=== PATIENT | female | born 1955 | race Caucasian/White ===

== ENCOUNTER 2018-06-15 11:52 | Inpatient (IN) | payer MEDICARE, MEDICAID ==
[~2018-06-15] VITALS: Ht 152.4 cm; Wt 74.0 kg
[~2018-06-15 11:52] MED LIST: ADV50250 IH; ALBU18HF2 IH; ALBU18HF2 INH; ATOR40TA3 PO; BUDE3CAP8 PO; CYAN-19 PO; CYCL-1 PO; DICY20TA33 PO; DIVA-81 PO; ESOM40CA PO; GABA300C PO; HYDR-565 PO; LAMOTRIGINE 25 MG; LISI40TA4 PO; LORA1TAB PO; LURA80TA3 PO; MAGN400C PO; MONT10TA21 PO; PROM25TA14 PO; ZALE5CAP2 PO
[2018-06-15] MEDS ORDERED: ondansetron/PF 4mg/2ml inj IV ONE (12:50)
[2018-06-15] MEDS ORDERED: morphine 4 MG/ML inj SYRINge IV PRN (12:50)
[2018-06-15] MEDS ORDERED: normal saline 1000ML IV soln IV ONE (12:50)
[2018-06-15 13:01] LABS: BASOPHILS # (AUTO) 0.1 X10'3 (0-0.2); BASOPHILS % (AUTO) 0.3 % (0-1); EOSINOPHILS # (AUTO) 0.4 X10'3 (0-0.9); EOSINOPHILS % (AUTO) 2.3 % (0-6); LYMPHOCYTES % (AUTO) 11.4 % (21-51); MEAN CORPUSCULAR HEMOGLOBIN 28.5 PG (27.0-31.0); MEAN CORPUSCULAR HGB CONC 33.2 % (33.0-36.5); MEAN CORPUSCULAR VOLUME 85.9 FL (78-98); MEAN PLATELET VOLUME 6.8 FL (7.4-10.4); MONOCYTES # (AUTO) 1.3 X10'3 (0-0.9); MONOCYTES % (AUTO) 7.6 % (2-12); NEUTROPHILS # (AUTO) 13.4 X10'3 (1.8-7.7); NEUTROPHILS % (AUTO) 78.4 % (42-75); PLATELET COUNT 470 X10'3 (140-440); RED BLOOD COUNT 4.54 X10'6 (4.20-5.60); RED CELL DISTRIBUTION WIDTH 14.8 % (11.5-14.5); WHITE BLOOD COUNT 17.1 X10'3 (4.5-11.0)
[2018-06-15 13:10] LABS: CLARITY,URINE CLEAR (Clear); COLOR,URINE YELLOW (Yellow); GLUCOSE, URINE NEGATIVE (Neg); KETONES,URINE NEGATIVE (Neg); LEUKOCYTE ESTERASE ,URINE NEGATIVE (Neg); NITRITES, URINE NEGATIVE (Neg); OCCULT BLOOD,URINE SMALL (Neg); PH,URINE 5.5 (4.8-8.0); PROTEIN,URINE 30 mg/dl (Neg); UROBILINOGEN,URINE 0.2 E.U/dL (0.2-1.0)
[2018-06-15 13:11] LABS: URINE HCG NEGATIVE (NEG)
[2018-06-15 13:12] LABS: UA COLLECTION TYPE VOIDED
[2018-06-15 13:12] LABS: ALANINE AMINOTRANSFERASE 22 U/L (12-78); ALBUMIN 3.8 G/DL (3.4-5.0); ALBUMIN/GLOBULIN RATIO 0.8 (1.1-1.5); ALKALINE PHOSPHATASE 107 IU/L (46-116); ANION GAP 9 (8-16); ASPARTATE AMINO TRANSFERASE 17 U/L (10-37); BILIRUBIN,TOTAL 0.3 MG/DL (0.1-1.0); BLOOD UREA NITROGEN 28 MG/DL (7-18); BUN/CREATININE RATIO 17.6 (6.6-38.0); CALCIUM 9.8 MG/DL (8.5-10.1); CHLORIDE 102 MMOL/L (99-107); CREATININE 1.59 MG/DL (0.40-0.90); GLUCOSE 140 MG/DL (70-104); LIPASE 100 U/L (73-393); POTASSIUM 3.7 MMOL/L (3.5-5.1); SODIUM 137 MMOL/L (135-145); TOTAL CARBON DIOXIDE 26.4 MMOL/L (24-32); TOTAL PROTEIN 8.7 G/DL (6.4-8.2); eGFR 33 ML/MIN
[2018-06-15 13:29] LABS: MUCUS STRANDS MODERATE /LPF (Neg); SQUAMOUS EPITHELIAL CELL,UR FEW /LPF (FEW)
[2018-06-15 13:30] LABS: BACTERIA,URINE FEW /HPF (Neg); WBC,URINE 0-4 /HPF (0-4)
[2018-06-15] MEDS ORDERED: fentaNYL/PF 50MCG/1 ML 2ML syringe IV ONE (14:00)
[2018-06-15] MEDS ORDERED: CefTRIAXone 2gm/D5W 50ml 50 ML IV ONE (15:00)
[2018-06-15] MEDS ORDERED: ALB0.5UD IH (15:29)
[2018-06-15] MEDS ORDERED: GABA-530 PO (15:29)
[2018-06-15] MEDS ORDERED: FOL0.4T PO (15:29)
[2018-06-15] MEDS ORDERED: FLUC100T PO (15:29)
[2018-06-15] MEDS ORDERED: tamsulosin 0.4mg capsule PO ONE (16:41)
[2018-06-15] MEDS ORDERED: HYDROcodone/acetaminophen 5mg/325mg tablet PO PRN (16:55)
[2018-06-15] MEDS ORDERED: bisacodyl 10mg suppository rectal RC PRN (16:55)
[2018-06-15] MEDS ORDERED: potassium Cl 20 mEq SR tablet PO PRN (16:55)
[2018-06-15] MEDS ORDERED: magnesium 4gm in 100ml NS 100 ML IV PRN (16:55)
[2018-06-15] MEDS ORDERED: magnesium Cl slow-release 64mg tablet PO PRN (16:55)
[2018-06-15] MEDS ORDERED: diphenhydrAMINE 25mg capsule PO PRN (16:55)
[2018-06-15] MEDS ORDERED: magnesium 1gm/100ml D5W IVPB 100 ML IV PRN (16:55)
[2018-06-15] MEDS ORDERED: HYDROmorphone 1 mg/ml syringe IV PRN (16:55)
[2018-06-15] MEDS ORDERED: acetaminophen 325mg tablet PO PRN ×2 (16:55)
[2018-06-15] MEDS ORDERED: potassium Cl 40MEQ/NS 500ml 500 ML IV PRN ×2 (16:55)
[2018-06-15] MEDS: K and/or MAG REPLACEMENT MC SCH (16:55)
[2018-06-15] MEDS ORDERED: hydrALAZINE 20mg/ml inj. IV PRN (17:10)
[2018-06-15] MEDS ORDERED: hydrALAZINE 20mg/ml inj. IV ONE (17:10)
[2018-06-15] MEDS: normal saline 1000ml 1,000 ML IV SCH ×2 (17:12→19:16)
[2018-06-15] MEDS ORDERED: HYDR-3686 PO (17:35)
[2018-06-15 18:10] VITALS: BP 194/90
[2018-06-15] MEDS ORDERED: cyclobenzaprine 10mg tablet PO PRN (18:10)
[2018-06-15] MEDS ORDERED: non-formulary drug (Albuterol Sulfate (Ventolin Hfa) 2 PUFFS) INH SCH (18:10)
[2018-06-15] MEDS: HYDROcodone/acetaminophen 10/325mg tab PO PRN (19:05)
[2018-06-15] MEDS: ondansetron/PF 4mg/2ml inj IV PRN (19:13)
[2018-06-15] MEDS: albuterol 2.5 MG/3 ML nebule NEB SCH ×2 (20:14→23:00)
[2018-06-15] MEDS: budesonide 0.5mg/2ml UD nebule IH SCH (20:17)
[2018-06-15] MEDS: dicyclomine 10 MG capsule PO SCH (20:27)
[2018-06-15] MEDS: atorvastatin 20mg tablet PO SCH (20:27)
[2018-06-15] MEDS: pantoprazole 40mg Tablet.DR PO SCH (20:27)
[2018-06-15] MEDS: heparin, porcine 5000 units/ml vial SQ SCH (20:31)
[2018-06-15] MEDS ORDERED: dextrose 50%-water 50ml dispensing syringe IV PRN ×2 (20:55)
[2018-06-15] MEDS ORDERED: LORazepam 2 mg/ml vial IV ONE (20:55)
[2018-06-15] MEDS ORDERED: dextrose ORAL solution 15 GM/59 ML bottle PO PRN ×2 (20:55)
[2018-06-15] MEDS ORDERED: glucagon, human recombinant 1mg kit SUBCUT PRN (20:55)
[2018-06-15] MEDS ORDERED: temazepam 15mg capsule PO PRN (21:00)
[2018-06-15 22:13] VITALS: BP 158/71
[2018-06-16] MEDS: HYDROcodone/acetaminophen 10/325mg tab PO PRN ×4 (00:12→20:37)
[2018-06-16] MEDS: albuterol 2.5 MG/3 ML nebule NEB SCH ×6 (02:55→23:08)
[2018-06-16] MEDS: normal saline 1000ml 1,000 ML IV SCH (05:08)
[2018-06-16 06:00] VITALS: BP 102/61
[2018-06-16 07:20] LABS: BASOPHILS # (AUTO) 0.1 X10'3 (0-0.2); BASOPHILS % (AUTO) 0.6 % (0-1); EOSINOPHILS # (AUTO) 0.2 X10'3 (0-0.9); EOSINOPHILS % (AUTO) 2.4 % (0-6); HEMATOCRIT 32.3 % (35.0-45.0); HEMOGLOBIN 10.7 g/dl (12.0-16.0); LYMPHOCYTES # (AUTO) 1.9 X10'3 (1.1-4.8); LYMPHOCYTES % (AUTO) 21.2 % (21-51); MEAN CORPUSCULAR HEMOGLOBIN 28.4 PG (27.0-31.0); MEAN CORPUSCULAR HGB CONC 33.1 % (33.0-36.5); MEAN CORPUSCULAR VOLUME 85.7 FL (78-98); MEAN PLATELET VOLUME 6.4 FL (7.4-10.4); MONOCYTES # (AUTO) 0.8 X10'3 (0-0.9); MONOCYTES % (AUTO) 9.1 % (2-12); NEUTROPHILS # (AUTO) 6.1 X10'3 (1.8-7.7); NEUTROPHILS % (AUTO) 66.7 % (42-75); PLATELET COUNT 358 X10'3 (140-440); RED BLOOD COUNT 3.77 X10'6 (4.20-5.60); RED CELL DISTRIBUTION WIDTH 14.8 % (11.5-14.5); WHITE BLOOD COUNT 9.2 X10'3 (4.5-11.0)
[2018-06-16 07:34] LABS: ALANINE AMINOTRANSFERASE 40 U/L (12-78); ALBUMIN 2.6 G/DL (3.4-5.0); ALBUMIN/GLOBULIN RATIO 0.7 (1.1-1.5); ALKALINE PHOSPHATASE 81 IU/L (46-116); ANION GAP 4 (8-16); ASPARTATE AMINO TRANSFERASE 24 U/L (10-37); BILIRUBIN,TOTAL 0.4 MG/DL (0.1-1.0); BLOOD UREA NITROGEN 21 MG/DL (7-18); BUN/CREATININE RATIO 11.9 (6.6-38.0); CALCIUM 8.3 MG/DL (8.5-10.1); CHLORIDE 106 MMOL/L (99-107); CREATININE 1.77 MG/DL (0.40-0.90); GLUCOSE 108 MG/DL (70-104); MAGNESIUM 1.9 MG/DL (1.5-2.4); PHOSPHORUS 3.7 MG/DL (2.3-4.5); POTASSIUM 3.8 MMOL/L (3.5-5.1); SODIUM 137 MMOL/L (135-145); TOTAL CARBON DIOXIDE 27.5 MMOL/L (24-32); TOTAL PROTEIN 6.1 G/DL (6.4-8.2); eGFR 29 ML/MIN
[2018-06-16] MEDS: gabapentin 100mg capsule PO SCH (07:58)
[2018-06-16] MEDS: pantoprazole 40mg Tablet.DR PO SCH ×2 (07:58→20:37)
[2018-06-16] MEDS: lisinopril 20mg tablet PO SCH (07:59)
[2018-06-16] MEDS: heparin, porcine 5000 units/ml vial SQ SCH ×2 (07:59→20:40)
[2018-06-16] MEDS: CefTRIAXone/D5W-Rocephin 1gm 50 ML IV SCH (07:59)
[2018-06-16] MEDS: montelukast 10mg tablet PO SCH (07:59)
[2018-06-16] MEDS: dicyclomine 10 MG capsule PO SCH ×4 (07:59→20:38)
[2018-06-16] MEDS: K and/or MAG REPLACEMENT MC SCH (08:00)
[2018-06-16] MEDS ORDERED: non-formulary drug (Lisinopril* 1 TABLET) PO SCH (08:00)
[2018-06-16] MEDS: budesonide 3mg SR capsule PO SCH (08:00)
[2018-06-16] MEDS: budesonide 0.5mg/2ml UD nebule IH SCH ×2 (08:59→18:55)
[2018-06-16 10:00] VITALS: BP 125/50
[2018-06-16] MEDS: ondansetron/PF 4mg/2ml inj IV PRN (16:38)
[2018-06-16 18:00] VITALS: BP 110/68
[2018-06-16] MEDS: tamsulosin 0.4mg capsule PO SCH (20:37)
[2018-06-16] MEDS: atorvastatin 20mg tablet PO SCH (20:38)
[2018-06-16 22:00] VITALS: BP 123/62
[2018-06-17] MEDS: normal saline 1000ml 1,000 ML IV SCH ×3 (01:11→21:48)
[2018-06-17] MEDS: HYDROcodone/acetaminophen 10/325mg tab PO PRN ×4 (01:12→17:50)
[2018-06-17] MEDS: albuterol 2.5 MG/3 ML nebule NEB SCH ×3 (03:56→11:58)
[2018-06-17 06:00] VITALS: BP 110/59
[2018-06-17 07:39] LABS: BASOPHILS # (AUTO) 0.1 X10'3 (0-0.2); BASOPHILS % (AUTO) 0.7 % (0-1); EOSINOPHILS # (AUTO) 0.3 X10'3 (0-0.9); EOSINOPHILS % (AUTO) 2.8 % (0-6); HEMATOCRIT 29.5 % (35.0-45.0); LYMPHOCYTES # (AUTO) 1.8 X10'3 (1.1-4.8); LYMPHOCYTES % (AUTO) 19.6 % (21-51); MEAN CORPUSCULAR HEMOGLOBIN 28.8 PG (27.0-31.0); MEAN CORPUSCULAR HGB CONC 33.9 % (33.0-36.5); MEAN PLATELET VOLUME 7.1 FL (7.4-10.4); MONOCYTES # (AUTO) 0.8 X10'3 (0-0.9); MONOCYTES % (AUTO) 9.2 % (2-12); NEUTROPHILS # (AUTO) 6.1 X10'3 (1.8-7.7); NEUTROPHILS % (AUTO) 67.7 % (42-75); PLATELET COUNT 336 X10'3 (140-440); RED BLOOD COUNT 3.47 X10'6 (4.20-5.60); RED CELL DISTRIBUTION WIDTH 15.1 % (11.5-14.5); WHITE BLOOD COUNT 9.1 X10'3 (4.5-11.0)
[2018-06-17] MEDS: budesonide 0.5mg/2ml UD nebule IH SCH (07:52)
[2018-06-17] MEDS: K and/or MAG REPLACEMENT MC SCH (08:00)
[2018-06-17] MEDS: budesonide 3mg SR capsule PO SCH (08:00)
[2018-06-17 08:07] LABS: ALANINE AMINOTRANSFERASE 25 U/L (12-78); ALBUMIN 2.5 G/DL (3.4-5.0); ALBUMIN/GLOBULIN RATIO 0.7 (1.1-1.5); ALKALINE PHOSPHATASE 83 IU/L (46-116); ANION GAP 7 (8-16); ASPARTATE AMINO TRANSFERASE 14 U/L (10-37); BILIRUBIN,TOTAL 0.3 MG/DL (0.1-1.0); BLOOD UREA NITROGEN 15 MG/DL (7-18); BUN/CREATININE RATIO 8.6 (6.6-38.0); CALCIUM 8.3 MG/DL (8.5-10.1); CHLORIDE 108 MMOL/L (99-107); CREATININE 1.75 MG/DL (0.40-0.90); GLUCOSE 109 MG/DL (70-104); MAGNESIUM 1.8 MG/DL (1.5-2.4); PHOSPHORUS 4.1 MG/DL (2.3-4.5); POTASSIUM 3.4 MMOL/L (3.5-5.1); SODIUM 139 MMOL/L (135-145); TOTAL CARBON DIOXIDE 23.6 MMOL/L (24-32); eGFR 29 ML/MIN
[2018-06-17 10:00] VITALS: BP 127/68
[2018-06-17] MEDS: gabapentin 100mg capsule PO SCH (10:43)
[2018-06-17] MEDS: montelukast 10mg tablet PO SCH (10:43)
[2018-06-17] MEDS: lisinopril 20mg tablet PO SCH (10:43)
[2018-06-17] MEDS: pantoprazole 40mg Tablet.DR PO SCH ×2 (10:43→19:35)
[2018-06-17] MEDS: tamsulosin 0.4mg capsule PO SCH ×2 (10:43→19:35)
[2018-06-17] MEDS: dicyclomine 10 MG capsule PO SCH ×4 (10:43→21:48)
[2018-06-17] MEDS: CefTRIAXone/D5W-Rocephin 1gm 50 ML IV SCH (10:44)
[2018-06-17] MEDS: ondansetron/PF 4mg/2ml inj IV PRN (10:44)
[2018-06-17] MEDS: heparin, porcine 5000 units/ml vial SQ SCH ×2 (10:45→19:40)
[2018-06-17] MEDS: nystatin 15 GM powder TP SCH ×2 (14:00→21:48)
[2018-06-17 18:00] VITALS: BP 125/57
[2018-06-17] MEDS: lurasidone 20mg tablet PO SCH (19:35)
[2018-06-17] MEDS: atorvastatin 20mg tablet PO SCH (21:48)
[2018-06-17 22:00] VITALS: BP 103/55
[2018-06-17] MEDS: potassium Cl 20 mEq SR tablet PO PRN (23:25)
[2018-06-18] MEDS: potassium Cl 20 mEq SR tablet PO PRN (04:12)
[2018-06-18 06:00] VITALS: BP 144/73
[2018-06-18] MEDS: CefTRIAXone/D5W-Rocephin 1gm 50 ML IV SCH (07:49)
[2018-06-18] MEDS: heparin, porcine 5000 units/ml vial SQ SCH ×2 (07:52→20:20)
[2018-06-18] MEDS: dicyclomine 10 MG capsule PO SCH ×4 (07:56→20:18)
[2018-06-18] MEDS: tamsulosin 0.4mg capsule PO SCH ×2 (07:57→20:19)
[2018-06-18] MEDS: montelukast 10mg tablet PO SCH (07:57)
[2018-06-18] MEDS: pantoprazole 40mg Tablet.DR PO SCH ×2 (07:58→17:11)
[2018-06-18] MEDS: lisinopril 20mg tablet PO SCH (07:58)
[2018-06-18] MEDS: gabapentin 100mg capsule PO SCH (07:58)
[2018-06-18] MEDS ORDERED: lurasidone 20mg tablet PO SCH (08:00)
[2018-06-18] MEDS: nystatin 15 GM powder TP SCH ×3 (08:00→20:25)
[2018-06-18] MEDS: K and/or MAG REPLACEMENT MC SCH (08:00)
[2018-06-18] MEDS: budesonide 3mg SR capsule PO SCH (08:00)
[2018-06-18] MEDS: budesonide 0.5mg/2ml UD nebule IH SCH ×2 (09:00→19:46)
[2018-06-18 09:03] LABS: BASOPHILS # (AUTO) 0.1 X10'3 (0-0.2); BASOPHILS % (AUTO) 0.7 % (0-1); EOSINOPHILS # (AUTO) 0.3 X10'3 (0-0.9); EOSINOPHILS % (AUTO) 4.3 % (0-6); HEMATOCRIT 30.8 % (35.0-45.0); HEMOGLOBIN 10.2 g/dl (12.0-16.0); LYMPHOCYTES # (AUTO) 1.7 X10'3 (1.1-4.8); LYMPHOCYTES % (AUTO) 22.9 % (21-51); MEAN CORPUSCULAR HEMOGLOBIN 28.8 PG (27.0-31.0); MEAN CORPUSCULAR HGB CONC 33.1 % (33.0-36.5); MEAN CORPUSCULAR VOLUME 86.9 FL (78-98); MEAN PLATELET VOLUME 7.2 FL (7.4-10.4); MONOCYTES # (AUTO) 0.6 X10'3 (0-0.9); MONOCYTES % (AUTO) 8.5 % (2-12); NEUTROPHILS # (AUTO) 4.8 X10'3 (1.8-7.7); NEUTROPHILS % (AUTO) 63.6 % (42-75); PLATELET COUNT 326 X10'3 (140-440); RED BLOOD COUNT 3.54 X10'6 (4.20-5.60); RED CELL DISTRIBUTION WIDTH 14.6 % (11.5-14.5); WHITE BLOOD COUNT 7.6 X10'3 (4.5-11.0)
[2018-06-18] MEDS: normal saline 1000ml 1,000 ML IV SCH ×2 (09:11→14:51)
[2018-06-18 09:22] LABS: ALANINE AMINOTRANSFERASE 28 U/L (12-78); ALBUMIN 2.4 G/DL (3.4-5.0); ALBUMIN/GLOBULIN RATIO 0.6 (1.1-1.5); ALKALINE PHOSPHATASE 82 IU/L (46-116); ANION GAP 8 (8-16); ASPARTATE AMINO TRANSFERASE 17 U/L (10-37); BILIRUBIN,TOTAL 0.3 MG/DL (0.1-1.0); BLOOD UREA NITROGEN 11 MG/DL (7-18); BUN/CREATININE RATIO 8.9 (6.6-38.0); CALCIUM 8.7 MG/DL (8.5-10.1); CHLORIDE 109 MMOL/L (99-107); CREATININE 1.23 MG/DL (0.40-0.90); GLUCOSE 88 MG/DL (70-104); MAGNESIUM 1.7 MG/DL (1.5-2.4); SODIUM 140 MMOL/L (135-145); TOTAL CARBON DIOXIDE 23.5 MMOL/L (24-32); TOTAL PROTEIN 6.1 G/DL (6.4-8.2); eGFR 44 ML/MIN
[2018-06-18 09:26] LABS: HEMOGLOBIN A1C 6.4 % (4.5-6.2)
[2018-06-18 10:00] VITALS: BP 89/62
[2018-06-18] MEDS ORDERED: HYDR50TA65 PO (16:02)
[2018-06-18] MEDS: hydrOXYzine 25 MG tablet PO PRN (16:35)
[2018-06-18] MEDS: HYDROcodone/acetaminophen 10/325mg tab PO PRN ×2 (16:53→20:53)
[2018-06-18 18:00] VITALS: BP 169/74
[2018-06-18] MEDS: albuterol 2.5 MG/3 ML nebule NEB PRN (19:41)
[2018-06-18] MEDS: atorvastatin 20mg tablet PO SCH (20:18)
[2018-06-18] MEDS: lurasidone 20mg tablet PO SCH (20:18)
[2018-06-18] MEDS: lactobacillus rhamnosus 10,000 MMU CELLS/CAPSULE PO SCH (20:19)
[2018-06-18 22:00] VITALS: BP 135/75
[2018-06-19] MEDS: normal saline 1000ml 1,000 ML IV SCH (03:45)
[2018-06-19] MEDS: HYDROcodone/acetaminophen 10/325mg tab PO PRN (03:45)
[2018-06-19 06:00] VITALS: BP 132/60
[2018-06-19 07:10] LABS: BASOPHILS % (AUTO) 0.2 % (0-1); EOSINOPHILS # (AUTO) 0.4 X10'3 (0-0.9); HEMATOCRIT 30.1 % (35.0-45.0); LYMPHOCYTES # (AUTO) 1.8 X10'3 (1.1-4.8); LYMPHOCYTES % (AUTO) 30.2 % (21-51); MEAN CORPUSCULAR HEMOGLOBIN 28.8 PG (27.0-31.0); MEAN CORPUSCULAR HGB CONC 33.2 % (33.0-36.5); MEAN CORPUSCULAR VOLUME 86.8 FL (78-98); MEAN PLATELET VOLUME 7.3 FL (7.4-10.4); MONOCYTES # (AUTO) 0.6 X10'3 (0-0.9); MONOCYTES % (AUTO) 9.3 % (2-12); NEUTROPHILS # (AUTO) 3.2 X10'3 (1.8-7.7); NEUTROPHILS % (AUTO) 53.3 % (42-75); PLATELET COUNT 332 X10'3 (140-440); RED BLOOD COUNT 3.46 X10'6 (4.20-5.60); RED CELL DISTRIBUTION WIDTH 14.6 % (11.5-14.5)
[2018-06-19 07:25] LABS: ALANINE AMINOTRANSFERASE 39 U/L (12-78); ALBUMIN 2.3 G/DL (3.4-5.0); ALBUMIN/GLOBULIN RATIO 0.7 (1.1-1.5); ALKALINE PHOSPHATASE 95 IU/L (46-116); ANION GAP 3 (8-16); ASPARTATE AMINO TRANSFERASE 28 U/L (10-37); BILIRUBIN,TOTAL 0.2 MG/DL (0.1-1.0); BLOOD UREA NITROGEN 14 MG/DL (7-18); BUN/CREATININE RATIO 11.5 (6.6-38.0); CHLORIDE 109 MMOL/L (99-107); CREATININE 1.22 MG/DL (0.40-0.90); GLUCOSE 101 MG/DL (70-104); MAGNESIUM 1.5 MG/DL (1.5-2.4); PHOSPHORUS 3.8 MG/DL (2.3-4.5); POTASSIUM 4.5 MMOL/L (3.5-5.1); SODIUM 140 MMOL/L (135-145); TOTAL CARBON DIOXIDE 28.1 MMOL/L (24-32); TOTAL PROTEIN 5.8 G/DL (6.4-8.2); eGFR 44 ML/MIN
[2018-06-19] MEDS: CefTRIAXone/D5W-Rocephin 1gm 50 ML IV SCH (07:46)
[2018-06-19] MEDS: lisinopril 20mg tablet PO SCH (07:46)
[2018-06-19] MEDS: dicyclomine 10 MG capsule PO SCH (07:46)
[2018-06-19] MEDS: tamsulosin 0.4mg capsule PO SCH (07:46)
[2018-06-19] MEDS: montelukast 10mg tablet PO SCH (07:46)
[2018-06-19] MEDS: lactobacillus rhamnosus 10,000 MMU CELLS/CAPSULE PO SCH (07:46)
[2018-06-19] MEDS: heparin, porcine 5000 units/ml vial SQ SCH (07:47)
[2018-06-19] MEDS: gabapentin 100mg capsule PO SCH (07:47)
[2018-06-19] MEDS: pantoprazole 40mg Tablet.DR PO SCH (07:47)
[2018-06-19] MEDS: hydrOXYzine 25 MG tablet PO PRN (07:52)
[2018-06-19] MEDS: budesonide 3mg SR capsule PO SCH (08:00)
[2018-06-19] MEDS: K and/or MAG REPLACEMENT MC SCH (08:00)
[2018-06-19] MEDS: nystatin 15 GM powder TP SCH (08:00)
[2018-06-19] MEDS: albuterol 2.5 MG/3 ML nebule NEB PRN (08:42)
[2018-06-19] MEDS: budesonide 0.5mg/2ml UD nebule IH SCH (08:43)
[2018-06-19] MEDS ORDERED: HYDR-565 PO (09:33)
[2018-06-19] MEDS ORDERED: LEVO500T2 PO (09:33)
[2018-06-19 10:00] VITALS: BP 144/71
== END 2018-06-19 15:20 | disposition home or self-care (01) | DRG 872 ==
LOC: ER 11:53 → ED HOLD 16:51 → EDBEDREQ 17:25 → ORTHO 4S 18:00
PROVIDERS: ADMIT Family Medicine; ATTEND Internal Medicine
DX: A41.9 Sepsis, unspecified organism (principal); N17.9 Acute kidney failure, unspecified; E44.0 Moderate protein-calorie malnutrition; N13.8 Other obstructive and reflux uropathy; N13.6 Pyonephrosis; D35.02 Benign neoplasm of left adrenal gland; K22.70 Barrett's esophagus without dysplasia; F15.10 Other stimulant abuse, uncomplicated; F12.10 Cannabis abuse, uncomplicated; E11.9 Type 2 diabetes mellitus without complications; E78.00 Pure hypercholesterolemia, unspecified; E78.5 Hyperlipidemia, unspecified; I10 Essential (primary) hypertension; J44.9 Chronic obstructive pulmonary disease, unspecified; K21.9 Gastro-esophageal reflux disease without esophagitis; K44.9 Diaphragmatic hernia without obstruction or gangrene; K59.00 Constipation, unspecified; K76.0 Fatty (change of) liver, not elsewhere classified; K57.30 Diverticulosis of large intestine without perforation or abscess without bleeding; F32.9 Major depressive disorder, single episode, unspecified; G89.29 Other chronic pain; D64.9 Anemia, unspecified; K80.20 Calculus of gallbladder without cholecystitis without obstruction; Z90.710 Acquired absence of both cervix and uterus; Z79.899 Other long term (current) drug therapy; Z88.2 Allergy status to sulfonamides; Z88.8 Allergy status to other drugs, medicaments and biological substances; Z88.5 Allergy status to narcotic agent; Z91.041 Radiographic dye allergy status; Z88.6 Allergy status to analgesic agent; Z87.891 Personal history of nicotine dependence; Z68.31 Body mass index [BMI] 31.0-31.9, adult
CPT/HCPCS: 36415; 74176; 80053; 81001; 81025; 82948; 83036; 83605; 83690; 83735; 84100; 85025; 87040; 87070; 94640; 94760; 96365; 96375; 99285; A4315; J0360; J0696; J1170; J1644; J2060; J2270; J2405; J3010; J7030; J7626; Q0177

== ENCOUNTER 2018-07-03 11:11 | Emergency (ER) | payer MEDICARE, MEDICAID ==
[~2018-07-03] VITALS: Ht 154.9 cm; Wt 73.5 kg
[~2018-07-03 11:11] MED LIST changes: +ALB0.5UD IH; -ALBU18HF2 IH; -CYAN-19 PO; -DIVA-81 PO; +GABA-530 PO; -GABA300C PO; +HYDR50TA65 PO; -LAMOTRIGINE 25 MG; +LEVO500T2 PO; -LORA1TAB PO; -ZALE5CAP2 PO
[2018-07-03 11:23] VITALS: BP 181/96
[2018-07-03 12:08] LABS: CLARITY,URINE SLIGHTLY CLOUDY (Clear); COLOR,URINE YELLOW (Yellow); GLUCOSE, URINE NEGATIVE (Neg); KETONES,URINE NEGATIVE (Neg); LEUKOCYTE ESTERASE ,URINE TRACE (Neg); NITRITES, URINE NEGATIVE (Neg); OCCULT BLOOD,URINE NEGATIVE (Neg); PH,URINE 5.5 (4.8-8.0); PROTEIN,URINE NEGATIVE (Neg); UROBILINOGEN,URINE 0.2 E.U/dL (0.2-1.0)
[2018-07-03 12:15] LABS: UA COLLECTION TYPE CLN CATCH MIDSTREAM
[2018-07-03 12:17] LABS: BACTERIA,URINE FEW /HPF (Neg); HYALINE CASTS 0-3 /LPF (NEGATIVE); MUCUS STRANDS MODERATE /LPF (Neg); RBC,URINE 0-2 /HPF (0-2); SQUAMOUS EPITHELIAL CELL,UR MODERATE /LPF (FEW); WBC,URINE 0-4 /HPF (0-4)
[2018-07-03 12:54] LABS: BASOPHILS # (AUTO) 0.1 X10'3 (0-0.2); BASOPHILS % (AUTO) 0.9 % (0-1); EOSINOPHILS # (AUTO) 0.3 X10'3 (0-0.9); EOSINOPHILS % (AUTO) 2.6 % (0-6); HEMOGLOBIN 13.3 g/dl (12.0-16.0); LYMPHOCYTES # (AUTO) 2.3 X10'3 (1.1-4.8); LYMPHOCYTES % (AUTO) 23.2 % (21-51); MEAN CORPUSCULAR HEMOGLOBIN 28.9 PG (27.0-31.0); MEAN CORPUSCULAR HGB CONC 33.2 % (33.0-36.5); MEAN PLATELET VOLUME 6.7 FL (7.4-10.4); MONOCYTES # (AUTO) 0.8 X10'3 (0-0.9); MONOCYTES % (AUTO) 8.4 % (2-12); NEUTROPHILS # (AUTO) 6.3 X10'3 (1.8-7.7); NEUTROPHILS % (AUTO) 64.9 % (42-75); PLATELET COUNT 627 X10'3 (140-440); RED CELL DISTRIBUTION WIDTH 13.9 % (11.5-14.5); WHITE BLOOD COUNT 9.8 X10'3 (4.5-11.0)
[2018-07-03 13:04] LABS: ALBUMIN 3.5 G/DL (3.4-5.0); ANION GAP 6 (8-16); BLOOD UREA NITROGEN 19 MG/DL (7-18); BUN/CREATININE RATIO 16.8 (6.6-38.0); CALCIUM 9.7 MG/DL (8.5-10.1); CHLORIDE 103 MMOL/L (99-107); CREATININE 1.13 MG/DL (0.40-0.90); GLUCOSE 118 MG/DL (70-104); POTASSIUM 3.9 MMOL/L (3.5-5.1); SODIUM 138 MMOL/L (135-145); TOTAL CARBON DIOXIDE 29.2 MMOL/L (24-32); eGFR 48 ML/MIN
== END 2018-07-03 13:30 | disposition home or self-care (01) ==
LOC: ER 11:11
DX: M53.3 Sacrococcygeal disorders, not elsewhere classified (principal); E78.00 Pure hypercholesterolemia, unspecified; I10 Essential (primary) hypertension; K21.9 Gastro-esophageal reflux disease without esophagitis; E11.9 Type 2 diabetes mellitus without complications; G89.29 Other chronic pain; F12.90 Cannabis use, unspecified, uncomplicated; Z98.890 Other specified postprocedural states; Z88.2 Allergy status to sulfonamides; Z88.5 Allergy status to narcotic agent; Z88.1 Allergy status to other antibiotic agents; Z88.6 Allergy status to analgesic agent; Z88.8 Allergy status to other drugs, medicaments and biological substances; Z79.899 Other long term (current) drug therapy; Z79.2 Long term (current) use of antibiotics
CPT/HCPCS: 36415; 80048; 81001; 85025; 87088; 99284

== ENCOUNTER 2019-03-25 09:39 | Emergency (ER) | payer MEDICARE, MEDICAID ==
[~2019-03-25] VITALS: Ht 152.4 cm; Wt 74.5 kg
[~2019-03-25 09:39] MED LIST changes: -ATOR40TA3 PO; +ATOR40TA7 PO; +HYDR-4353 PO; -HYDR-565 PO; -LEVO500T2 PO
[2019-03-25] MEDS ORDERED: cephalexin 250mg capsule PO ONE (10:35)
[2019-03-25] MEDS ORDERED: FAMO-128 PO (10:35)
[2019-03-25] MEDS ORDERED: CEPH500C5 PO (10:35)
[2019-03-25] MEDS ORDERED: diphenhydrAMINE 50 mg/ml inj IM ONE (10:35)
[2019-03-25] MEDS ORDERED: DIPH-423 PO (10:35)
[2019-03-25] MEDS ORDERED: PRED20TA PO (10:35)
[2019-03-25 10:53] VITALS: BP 121/42
== END 2019-03-25 10:55 | disposition home or self-care (01) ==
LOC: ER 09:40
DX: T78.40XA Allergy, unspecified, initial encounter (principal); L03.116 Cellulitis of left lower limb; L03.115 Cellulitis of right lower limb; I10 Essential (primary) hypertension; E78.00 Pure hypercholesterolemia, unspecified; K21.9 Gastro-esophageal reflux disease without esophagitis; E11.9 Type 2 diabetes mellitus without complications; G89.29 Other chronic pain; M54.9 Dorsalgia, unspecified; F12.90 Cannabis use, unspecified, uncomplicated; Z88.6 Allergy status to analgesic agent; Z88.1 Allergy status to other antibiotic agents; Z88.2 Allergy status to sulfonamides; Z88.8 Allergy status to other drugs, medicaments and biological substances; Z91.018 Allergy to other foods; X58.XXXA Exposure to other specified factors, initial encounter
CPT/HCPCS: 96372; 99283; J1200; 93005

== ENCOUNTER 2019-11-25 21:00 | Emergency (ER) | payer MEDICARE, MEDICAID ==
[~2019-11-25] VITALS: Ht 152.4 cm; Wt 64.5 kg
[~2019-11-25 21:00] MED LIST changes: +CEPH500C5 PO; +DIPH-423 PO; +FAMO-128 PO
[2019-11-25 22:55] VITALS: BP 157/93
== END 2019-11-25 22:56 | disposition home or self-care (01) ==
LOC: ER 21:01
DX: M25.562 Pain in left knee (principal); E78.00 Pure hypercholesterolemia, unspecified; I10 Essential (primary) hypertension; J45.909 Unspecified asthma, uncomplicated; G89.29 Other chronic pain; F32.9 Major depressive disorder, single episode, unspecified; E11.9 Type 2 diabetes mellitus without complications; K21.9 Gastro-esophageal reflux disease without esophagitis; F12.90 Cannabis use, unspecified, uncomplicated; Z98.890 Other specified postprocedural states; Z88.2 Allergy status to sulfonamides; Z88.1 Allergy status to other antibiotic agents; Z88.8 Allergy status to other drugs, medicaments and biological substances; Z79.2 Long term (current) use of antibiotics; Z79.899 Other long term (current) drug therapy
CPT/HCPCS: 99284

== ENCOUNTER 2019-11-27 09:50 | Outpatient (CLI) | payer MEDICARE, MEDICAID | END 2019-11-27 23:59 | disposition home or self-care (01) | LOC: VAS 09:50 | PROVIDERS: ATTEND Orthopaedic Surgery | DX: M25.562 Pain in left knee (principal); I10 Essential (primary) hypertension; J45.909 Unspecified asthma, uncomplicated; E11.9 Type 2 diabetes mellitus without complications; Z87.891 Personal history of nicotine dependence | CPT/HCPCS: 93971 ==

== ENCOUNTER 2024-12-27 22:10 | Emergency (ER) | payer BC, MEDICAID ==
[~2024-12-27] VITALS: Ht 162.6 cm; Wt 68.0 kg
[~2024-12-27 22:10] MED LIST changes: +ATOR-411 PO; -ATOR40TA7 PO; -CEPH500C5 PO; +LISI40TA13 PO; -LISI40TA4 PO; +LURA80TA2 PO; -LURA80TA3 PO; +MONT-48 PO; -MONT10TA21 PO
[2024-12-27 22:31] VITALS: BP 102/85; PULSE 78; RESP 17; O2SAT 99
[2024-12-28 03:16] LABS: D-DIMER 0.87 MG/L FEU (0-0.50)
[2024-12-28] MEDS ORDERED: CEPH-585 PO (05:50)
[2024-12-28 05:52] VITALS: TEMP 96.8
[2024-12-28] MEDS: ondansetron 4mg rapidly disintigrating tab PO ONE (05:54)
[2024-12-28] MEDS: cephalexin 250mg capsule PO ONE (05:54)
[2024-12-28] MEDS: acetaminophen 325mg tablet PO ONE (06:05)
== END 2024-12-28 06:07 | disposition home or self-care (01) ==
LOC: ER 22:11
DX: L03.116 Cellulitis of left lower limb (principal); M71.22 Synovial cyst of popliteal space [Baker], left knee; I10 Essential (primary) hypertension; E78.00 Pure hypercholesterolemia, unspecified; E11.9 Type 2 diabetes mellitus without complications; J45.909 Unspecified asthma, uncomplicated; K21.9 Gastro-esophageal reflux disease without esophagitis; F32.A Depression, unspecified; F12.90 Cannabis use, unspecified, uncomplicated; Z87.440 Personal history of urinary (tract) infections; Z88.2 Allergy status to sulfonamides; Z88.5 Allergy status to narcotic agent; Z88.6 Allergy status to analgesic agent; Z88.1 Allergy status to other antibiotic agents; Z88.8 Allergy status to other drugs, medicaments and biological substances; Z91.041 Radiographic dye allergy status; Z98.890 Other specified postprocedural states
CPT/HCPCS: 36415; 73630; 85379; 93971; 99284